=== PATIENT | female | born 1995 | race Hispanic/Latino ===

== ENCOUNTER 2017-10-28 07:49 | Emergency (ER) | payer SELFPAY ==
[~2017-10-28] VITALS: Ht 162.6 cm; Wt 56.3 kg
[2017-10-28 08:48] LABS: HEMATOCRIT 40.8 % (36.0-46.0); HEMOGLOBIN 13.3 G/DL (11.9-15.5); MCHC 32.6 G/DL (30.0-36.0); MCV 85.9 FL (83-99); PLATELET COUNT 428 K/uL (156-360); RBC DIS.WIDTH-CV 13.8 % (11.8-14.6); RBC DIS.WIDTH-SD 43.8 % (39-53); RED BLOOD COUNT 4.75 M/uL (3.80-5.20); WHITE BLOOD COUNT 6.2 K/uL (4.1-10.2)
[2017-10-28 09:11] LABS: QUANTITATIVE HCG < 4.0 MIU/ML
[2017-10-28 10:10] LABS: ALBUMIN 4.6 g/dL (3.2-4.8); CHLORIDE 104 mEq/L (99-109); POTASSIUM 4.7 mEq/L (3.7-5.4); SODIUM 137 mEq/L (136-147)
[2017-10-28 10:12] LABS: GLUCOSE 111 mg/dL (70-99); TOTAL PROTEIN 8.3 g/dL (6.4-8.3)
[2017-10-28 10:14] LABS: TOTAL BILIRUBIN 0.2 mg/dL (0.0-1.0)
[2017-10-28 10:16] LABS: ALKALINE PHOSPHATASE 61 IU/L (3-129); CREATININE 0.7 mg/dL (0.6-1.3); GFR ESTIMATE (CALCULATED) > 59 mL/min/
[2017-10-28 10:17] LABS: UREA NITROGEN (BUN) 7 mg/dL (9-23)
[2017-10-28 10:18] LABS: AST (GOT) 23 IU/L (2-34)
[2017-10-28 10:19] LABS: ALT (GPT) 14 IU/L (3-49)
[2017-10-28 12:15] VITALS: BP 99/58
== END 2017-10-28 12:17 | disposition home or self-care (01) ==
LOC: EME 07:49
DX: R55 Syncope and collapse (principal)
CPT/HCPCS: 80053; 84702; 85027; 93005; 99281; 99284